=== PATIENT | female | born 1990 | race Asian ===

== ENCOUNTER 2017-06-18 10:24 | Emergency (ER) | payer OTHER ==
[~2017-06-18] VITALS: Ht 170.2 cm; Wt 59.6 kg
[2017-06-18 10:27] VITALS: TEMP 36.6
--- NOTE | 2017-06-18 10:43 | EMERGENCY ROOM VISIT NOTE ---
History Report prepared by Russell: Kristal Thurman Under the Supervision of: Dr. Richard Orantes M.D. First contact with patient: 10:32 Chief Complaint: ED VAG BLEEDING Stated Complaint: 4 WEEKS, BLEEDING AND PAIN History of Present Illness The patient is a 26 year old female who presents to the Emergency Room with complaints of persistent vaginal bleeding that began last evening. She currently rates her discomfort as a 6/10 in severity. Per the patient's , the patient is currently somewhere around 4-5 weeks , noting that her last menstrual period was May 21. He states that the patient tested positive for . The patient's states that this is the patient' s second and denies any previous miscarriage. He states that last evening the patient developed some slight vaginal bleeding and states that this morning she began bleeding more. The patient's states that the patient complains of abdominal pain today as well. Source of History: patient, spouse/significant other () Onset: last evening Position: other (vaginal) Quality: other (bleeding) Timing: other (persistent) Associated Symptoms: + abdominal pain Review of Systems See HPI for pertinent positives & negatives. A total of 10 systems reviewed and were otherwise negative. Past Medical & Surgical Medical Problems: (1) Family History No pertinent family history stated. Social History Smoking Status: Never Smoker Marital Status: Housing Status: lives with family Occupation Status: [employer] student Current/Historical Medications No Active Prescriptions or Reported Meds Allergies Coded Allergies: No Known Allergies (Unverified , 06/18/17) Physical Exam Vital Signs Date Time Temp Pulse Resp B/P (MAP) Pulse Ox O2 Delivery O2 Flow Rate FiO2 06/18/17 12:08 69 20 126/75 100 06/18/17 10:27 36.6 73 16 116/77 97 Room Air Physical Exam GENERAL: Patient is a healthy-appearing well-nourished female HEAD: Normocephalic atraumatic EYES: Ocular movements intact pupils equal and react to light OROPHARYNX mucous membranes are moist no exudates present no erythema or edema present NECK: Supple no nuchal rigidity CHEST: Good equal expansion LUNGS: Clear and equal to auscultation CARDIAC: Normal S1 and S2 ABDOMEN: Soft nontender no guarding BACK: No CVA tenderness EXTREMITIES: No pain upon palpation normal muscle strength in all groups no clubbing cyanosis or edema NEURO: Patient is following commands and answering questions appropriately. Alert and oriented x3 Cranial Nerves 2-12 grossly intact Medical Decision & Procedures ER Provider Diagnostic Interpretation: US results as stated below per my review and radiologist interpretation: PELVIC ULTRASOUND CLINICAL HISTORY: 4 weeks . Vaginal pain and bleeding. COMPARISON STUDY: None. TECHNIQUE: Transabdominal and transvaginal sonography of the pelvis was performed. FINDINGS: The uterus measures 7.9 x 4.2 x 4.5 cm. No intrauterine gestational sac is identified. The endometrium measures 9 mm in thickness. There is a small amount of fluid/debris within the endometrial canal. The ovaries are normal. The right ovary measures 3.6 x 1.5 x 2.4 cm and the left measures 3.3 x 1.6 x 1.6 cm. Color flow is identified within each ovary. A small amount of fluid was noted within the pelvis. IMPRESSION: 1. No intrauterine gestational sac identified. If positive test, differential considerations include a normal early intrauterine gestation, missed spontaneous and sonographically occult ectopic . Close clinical follow-up, including serial beta hCG levels is recommended. 2. Small amount of fluid/debris within the endometrial canal which could reflect blood products. 3. Small amount fluid within the pelvis. Electronically signed by: Aden Zabala M.D. 06/18/2017 12:21 PM Dictated Date/Time: 06/18/2017 12:17 PM Laboratory Results 06/18/17 10:48 Red Blood Count 4.32, Mean Corpuscular Volume 89.4, Mean Corpuscular Hemoglobin 30.8, Mean Corpuscular Hemoglobin Concent 34.5, Mean Platelet Volume 9.7, Neutrophils (%) (Auto) 59.7, Lymphocytes (%) (Auto) 32.1, Monocytes (%) (Auto) 5.2, Eosinophils (%) (Auto) 2.6, Basophils (%) (Auto) 0.2, Neutrophils # (Auto) 3.69, Lymphocytes # (Auto) 1.98, Monocytes # (Auto) 0.32, Eosinophils # (Auto) 0.16, Basophils # (Auto) 0.01 06/18/17 10:48 Test 06/18/17 10:48 06/18/17 10:50 06/18/17 11:05 White Blood Count 6.17 K/uL (4.8-10.8) Red Blood Count 4.32 M/uL (4.2-5.4) Hemoglobin 13.3 g/dL (12.0-16.0) Hematocrit 38.6 % (37-47) Mean Corpuscular Volume 89.4 fL (80-100) Mean Corpuscular Hemoglobin 30.8 pg (25-34) Mean Corpuscular Hemoglobin Concent 34.5 g/dl (32-36) Platelet Count 239 K/uL (130-400) Mean Platelet Volume 9.7 fL (7.4-10.4) Neutrophils (%) (Auto) 59.7 % Lymphocytes (%) (Auto) 32.1 % Monocytes (%) (Auto) 5.2 % Eosinophils (%) (Auto) 2.6 % Basophils (%) (Auto) 0.2 % Neutrophils # (Auto) 3.69 K/uL (1.4-6.5) Lymphocytes # (Auto) 1.98 K/uL (1.2-3.4) Monocytes # (Auto) 0.32 K/uL (0.11-0.59) Eosinophils # (Auto) 0.16 K/uL (0-0.5) Basophils # (Auto) 0.01 K/uL (0-0.2) RDW Standard Deviation 38.9 fL (36.4-46.3) RDW Coefficient of Variation 11.9 % (11.5-14.5) Immature Granulocyte % (Auto) 0.2 % Immature Granulocyte # (Auto) 0.01 K/uL (0.00-0.02) Prothrombin Time 10.7 SECONDS (9.0-12.0) Prothromb Time International Ratio 1.0 (0.9-1.1) Activated Partial Thromboplast Time 31.9 SECONDS (21.0-31.0) Partial Thromboplastin Ratio 1.2 Anion Gap 6.0 mmol/L (3-11) Est Creatinine Clear Calc Drug Dose 147.2 ml/min Estimated GFR () 149.9 Estimated GFR (Non- 129.3 BUN/Creatinine Ratio 13.0 (10-20) Calcium Level 8.5 mg/dl (8.5-10.1) Total Bilirubin 0.5 mg/dl (0.2-1) Aspartate Amino Transf (AST/SGOT) 12 U/L (15-37) Alanine Aminotransferase (ALT/SGPT) 19 U/L (12-78) Alkaline Phosphatase 61 U/L (45-117) Total Protein 6.9 gm/dl (6.4-8.2) Albumin 3.8 gm/dl (3.4-5.0) Globulin 3.1 gm/dl (2.5-4.0) Albumin/Globulin Ratio 1.2 (0.9-2) Human Chorionic Gonadotropin, Quant < 1 mIU/mL Urine Color YELLOW Urine Appearance CLEAR (CLEAR) Urine pH 5.5 (4.5-7.5) Urine Specific [place] 1.015 (1.000-1.030) Urine Protein NEG (NEG) Urine Glucose (UA) NEG (NEG) Urine Ketones NEG (NEG) Urine Occult Blood 3+ (NEG) Urine Nitrite NEG (NEG) Urine Bilirubin NEG (NEG) Urine Urobilinogen NEG (NEG) Urine Leukocyte Esterase TRACE (NEG) Urine WBC (Auto) 1-5 /hpf (0-5) Urine RBC (Auto) >30 /hpf (0-4) Urine Hyaline Casts (Auto) 1-5 /lpf (0-5) Urine Epithelial Cells (Auto) 20-30 /lpf (0-5) Urine Bacteria (Auto) NEG (NEG) Urine Test NEG (NEG) Labs reviewed by ED physician. ED Course 1116: Past medical records reviewed. The patient was evaluated in room C6. A complete history and physical examination was performed. 1228: I reevaluated the patient and she is resting comfortably. I discussed the exam findings with her and I discussed the treatment plan. She verbalized complete understanding and agreement. She is ready to go home. Medical Decision Differential diagnosis: Etiologies such as ectopic , dysfunction uterine bleeding, bleeding dyscrasia, trauma, infection, as well as others were entertained. This is a 26-year-old female who presents emergency department complaining of vaginal bleeding. I will note that I recommended an interpreter deaf for this patient however the patient and refused. The patient believes she is however both her urine as well as her serum beta hCG are negative. Based on this I feel that the patient is having her period. She is complaining of cramping however is not having any pain. Serial abdominal examinations were performed on the patient in the emergency department and at no time did the patient exhibited a surgical abdomen. I do believe that the patient as well as to be discharged home for follow-up with OB. Patient and were in agreement with the treatment plan. Medication Reconcilliation Current Medication List: was personally reviewed by me Blood Pressure Screening Patient's blood pressure: Normal blood pressure Blood pressure disposition: Did not require urgent referral Impression Primary Impression: Vaginal bleeding Scribe Attestation The scribe's documentation has been prepared under my direction and personally reviewed by me in its entirety. I confirm that the note above accurately reflects all work, treatment, procedures, and medical decision making performed by me. Departure Information Dispostion Home / Self-Care Prescriptions No Active Prescriptions or Reported Meds Referrals No Doctor, Assigned (PCP) Canan. Baxter MD Forms HOME CARE DOCUMENTATION FORM, IMPORTANT VISIT INFORMATION, WORK / SCHOOL INSTRUCTIONS Patient Instructions ED Miscarriage Completed, Miscarriage Dc, Miscarriage During, Miscarriage Emotions, Miscarriage Poss Causes, My [facility] Additional Instructions Follow up with DR Valero's office You have been examined and treated today on an emergency basis only. This is not a substitute for, or an effort to provide, complete comprehensive medical care. It is impossible to recognize and treat all injuries or illnesses in a single emergency department visit. It is therefore important that you follow up closely with [facility]. Call as soon as possible for an appointment. Thank you for your time and consideration. I look forward to speaking with you again soon. Please don't hesitate to call us if you have any questions.
[2017-06-18 11:08] LABS: BASO % 0.2 %; BASO ABS # 0.01 K/uL (0-0.2); COMPLETE YES; EOS % 2.6 %; HEMATOCRIT 38.6 % (37-47); IG% 0.2 %; LYMPH % 32.1 %; LYMPH ABS # 1.98 K/uL (1.2-3.4); MEAN CELL VOLUME 89.4 fL (80-100); MEAN CORPUSCULAR HEMOGLOBIN 30.8 pg (25-34); MEAN CORPUSCULAR HGB CONC 34.5 g/dl (32-36); MEAN PLATELET VOLUME 9.7 fL (7.4-10.4); MONO % 5.2 %; NEUT % 59.7 %; PLATELET COUNT 239 K/uL (130-400); RED BLOOD COUNT 4.32 M/uL (4.2-5.4); WHITE BLOOD COUNT 6.17 K/uL (4.8-10.8)
[2017-06-18 11:15] VITALS: Ht 170.2 cm; Wt 59.6 kg
[2017-06-18 11:23] LABS: PARTIAL THROMBOPLASTIN RATIO 1.2; PROTHROMBIN TIME (PATIENT) 10.7 SECONDS (9.0-12.0)
[2017-06-18 11:26] LABS: CALCIUM 8.5 mg/dl (8.5-10.1); CREATININE 0.54 mg/dl (0.60-1.20); POTASSIUM 3.9 mmol/L (3.5-5.1)
[2017-06-18 11:29] LABS: ALB/GLOB RATIO 1.2 (0.9-2)
[2017-06-18 11:38] LABS: URINE APPEARANCE CLEAR (CLEAR); URINE BILIRUBIN NEG (NEG); URINE COLOR YELLOW; URINE EPITHELIAL CELL AUTO 20-30 /lpf (0-5); URINE NITRITE NEG (NEG); URINE PH 5.5 (4.5-7.5); URINE SPECIFIC GRAVITY 1.015 (1.000-1.030); UROBILINOGEN NEG (NEG)
[2017-06-18 11:41] LABS: MANUAL MICROSCOPIC REQUIRED? NO; REVIEW REQ? NO
[2017-06-18 12:08] VITALS: BP 126/75; PULSE 69; O2SAT 100
--- NOTE | 2017-06-18 12:22 | DIAGNOSTIC IMAGING REPORT ---
PELVIC ULTRASOUND CLINICAL HISTORY: 4 weeks . Vaginal pain and bleeding. COMPARISON STUDY: None. TECHNIQUE: Transabdominal and transvaginal sonography of the pelvis was performed. FINDINGS: The uterus measures 7.9 x 4.2 x 4.5 cm. No intrauterine gestational sac is identified. The endometrium measures 9 mm in thickness. There is a small amount of fluid/debris within the endometrial canal. The ovaries are normal. The right ovary measures 3.6 x 1.5 x 2.4 cm and the left measures 3.3 x 1.6 x 1.6 cm. Color flow is identified within each ovary. A small amount of fluid was noted within the pelvis. IMPRESSION: 1. No intrauterine gestational sac identified. If positive test, differential considerations include a normal early intrauterine gestation, missed spontaneous and sonographically occult ectopic . Close clinical follow-up, including serial beta hCG levels is recommended. 2. Small amount of fluid/debris within the endometrial canal which could reflect blood products. 3. Small amount fluid within the pelvis. Electronically signed by: Aden Zabala M.D. 06/18/2017 12:21 PM Dictated Date/Time: 06/18/2017 12:17 PM
== END 2017-06-18 12:42 | disposition home or self-care (01) ==
LOC: C.EDB 10:26 → C.EDC 12:42
DX: N93.9 Abnormal uterine and vaginal bleeding, unspecified (principal)

== ENCOUNTER → 2017-10-12 | Outpatient (CLI) | payer OTHER ==
--- NOTE | 2017-10-12 15:28 | DIAGNOSTIC IMAGING REPORT ---
CHEST 2 VIEWS ROUTINE CLINICAL HISTORY: R50.9 [id number] cough COMPARISON STUDY: No previous studies for comparison. FINDINGS: The bones soft tissues and hemidiaphragms are normal. The cardiomediastinal silhouette is normal. The lungs are clear. The pulmonary vasculature is normal. IMPRESSION: Negative chest. The above report was generated using voice recognition software. It may contain grammatical, syntax or spelling errors. Electronically signed by: Jamie Quinn M.D. 10/12/2017 3:27 PM Dictated Date/Time: 10/12/2017 3:27 PM
[2017-10-12 16:43] LABS: BASO % 0.1 %; BASO ABS # 0.01 K/uL (0-0.2); EOS % 1.3 %; EOS ABS # 0.11 K/uL (0-0.5); HEMATOCRIT 35.2 % (37-47); IG# 0.02 K/uL (0.00-0.02); LYMPH % 22.5 %; LYMPH ABS # 1.92 K/uL (1.2-3.4); MEAN CELL VOLUME 88.9 fL (80-100); MEAN CORPUSCULAR HEMOGLOBIN 30.3 pg (25-34); MEAN CORPUSCULAR HGB CONC 34.1 g/dl (32-36); MEAN PLATELET VOLUME 9.6 fL (7.4-10.4); MONO % 7.9 %; MONO ABS # 0.67 K/uL (0.11-0.59); PLATELET COUNT 357 K/uL (130-400); RED CELL DISTRIBUTION WIDTH CV 11.5 % (11.5-14.5); RED CELL DISTRIBUTION WIDTH SD 37.3 fL (36.4-46.3); WHITE BLOOD COUNT 8.53 K/uL (4.8-10.8)
[2017-10-12 16:55] LABS: ALBUMIN 3.3 gm/dl (3.4-5.0); ALT/SGPT 79 U/L (12-78); AST/SGOT 46 U/L (15-37); BLOOD UREA NITROGEN 7 mg/dl (7-18); CALCIUM 8.9 mg/dl (8.5-10.1); CARBON DIOXIDE 29 mmol/L (21-32); CREATININE 0.49 mg/dl (0.60-1.20); GLUCOSE 99 mg/dl (70-99); SODIUM 135 mmol/L (136-145)
[2017-10-12 17:05] LABS: ALKALINE PHOSPHATASE 140 U/L (45-117); TOTAL PROTEIN 7.7 gm/dl (6.4-8.2)
== END | disposition home or self-care (01) ==
LOC: C.RADBC 14:36
PROVIDERS: ATTEND Physician Assistant
DX: R50.9 Fever, unspecified (principal); E04.9 Nontoxic goiter, unspecified

== ENCOUNTER → 2017-10-14 | Outpatient (CLI) | payer OTHER | END | disposition home or self-care (01) | LOC: C.LABBC 10:10 | PROVIDERS: ATTEND Physician Assistant | DX: E04.9 Nontoxic goiter, unspecified (principal) ==

== ENCOUNTER → 2017-10-14 | Outpatient (CLI) | payer OTHER ==
--- NOTE | 2017-10-14 11:43 | DIAGNOSTIC IMAGING REPORT ---
THYROID ULTRASOUND HISTORY: E04.9 Enlarged [id number] COMPARISON: None. FINDINGS: Right lobe: 4.0 x 2.2 x 2.0 cm. The gland is slightly heterogeneous. No definite nodules. Left lobe: 3.9 x 1.5 x 1.7 cm. The gland is slightly heterogeneous. No definite nodules. Isthmus: 4 mm in thickness. No nodules. IMPRESSION: Slightly enlarged and heterogeneous thyroid gland. No definite nodules. Electronically signed by: Riley Gross M.D. 10/14/2017 11:41 AM Dictated Date/Time: 10/14/2017 11:40 AM
== END | disposition home or self-care (01) ==
LOC: C.ULTR 10:47
PROVIDERS: ATTEND Physician Assistant
DX: E04.9 Nontoxic goiter, unspecified (principal)

== ENCOUNTER → 2018-05-17 | Outpatient (CLI) | payer OTHER | END | disposition home or self-care (01) | LOC: C.LABSPEC 15:49 | PROVIDERS: ATTEND Obstetrics & Gynecology | DX: Z34.81 Encounter for supervision of other normal pregnancy, first trimester (principal) ==

== ENCOUNTER → 2018-05-19 | Outpatient (CLI) | payer OTHER | END | disposition home or self-care (01) | LOC: C.PAPS 15:52 | PROVIDERS: ATTEND Obstetrics & Gynecology | DX: Z12.4 Encounter for screening for malignant neoplasm of cervix (principal) ==

== ENCOUNTER → 2018-05-19 | Outpatient (CLI) | payer OTHER ==
[2018-05-19 13:18] LABS: BASO % 0.1 %; BASO ABS # 0.01 K/uL (0-0.2); EOS % 0.9 %; EOS ABS # 0.06 K/uL (0-0.5); HEMATOCRIT 38.7 % (37-47); HEMOGLOBIN 13.6 g/dL (12.0-16.0); IG# 0.01 K/uL (0.00-0.02); LYMPH % 30.9 %; LYMPH ABS # 2.11 K/uL (1.2-3.4); MEAN CORPUSCULAR HEMOGLOBIN 30.6 pg (25-34); MEAN CORPUSCULAR HGB CONC 35.1 g/dl (32-36); MEAN PLATELET VOLUME 9.8 fL (7.4-10.4); MONO % 4.2 %; MONO ABS # 0.29 K/uL (0.11-0.59); NEUT % 63.8 %; NEUT ABS # 4.35 K/uL (1.4-6.5); PLATELET COUNT 212 K/uL (130-400); RED CELL DISTRIBUTION WIDTH SD 38.2 fL (36.4-46.3); WHITE BLOOD COUNT 6.83 K/uL (4.8-10.8)
== END | disposition home or self-care (01) ==
LOC: C.LAB1850 12:33
PROVIDERS: ATTEND Obstetrics & Gynecology
DX: Z34.81 Encounter for supervision of other normal pregnancy, first trimester (principal); E06.0 Acute thyroiditis

== ENCOUNTER 2019-01-04 10:20 | Inpatient (IN) ==
[2019-01-04] MEDS ORDERED: LACTATED RINGER'S 1,000 ML IV PRN ×3 (10:33→12:11)
[2019-01-04] MEDS ORDERED: OXYTOCIN 30 UNITS/500 ML BAG IV PRN ×3 (10:33→13:19)
[2019-01-04] MEDS ORDERED: BUPIVACAINE 0.25% 30 ML VIAL ONE (10:39)
[2019-01-04] MEDS ORDERED: ePHEDrine sulfate 50 MG/ML AMP ONE (10:39)
[2019-01-04] MEDS ORDERED: fentaNYL citrate 100 MCG/2 ML VIAL ONE (10:40)
[2019-01-04] MEDS ORDERED: fentaNYL 2MCG/ML ROPIV 1.25MG/ML 100 ML BAG EPI ONE (10:41)
[2019-01-04] MEDS ORDERED: LACTATED RINGER'S 1,000 ML IV SCH (10:45)
[2019-01-04 10:52] LABS: Hematocrit (blood only) 36.6 % (37-47); Hemoglobin 12.6 g/dL (12.0-16.0); Mean Corpuscular Volume 89.5 fL (80-100); Mean Platelet Volume 9.3 fL (7.4-10.4); Platelet Count 158 K/uL (130-400); RDW Coefficient of Variation 13.7 % (11.5-14.5); RDW Standard Deviation 44.8 fL (36.4-46.3); Red Blood Count 4.09 M/uL (4.2-5.4); White Blood Count 11.22 K/uL (4.8-10.8)
[2019-01-04 11:35] LABS: Mean Corpuscular Hgb Conc 34.4 g/dL (32-36)
--- NOTE | 2019-01-04 11:37 | Anesthesiology Consultation ---
Date of Service January 04, 2019 Assessment & Plan Chart Review Chart Review: Acceptable Risk for Labor Epidural Consults Requested none ASA ASA2E History Height/Weight Height: 5 ft 8 in Weight: 73.936 kg Allergies Allergy/AdvReac Type Severity Reaction Status Date / Time No Known Allergies Allergy Verified 01/04/19 10:42 Medications Home Medications Medication Instructions Recorded Confirmed Last Taken ferrous sulfate [iron] 325 mg PO TID 12/31/18 01/04/19 01/03/19 16:00 omega 2-iqa-wem-fish oil [Sandgap-3] 1 cap PO DAILY 12/31/18 01/04/19 01/03/19 16:00 Active Medications Generic Name Dose Route Start Last Admin Trade Name Freq PRN Reason Stop Dose Admin Lactated Ringer's 1,000 mls @ 125 mls/hr 01/04/19 10:45 01/04/19 10:38 Lr IV 01/06/19 10:44 999 mls/hr .Q8H ZELALEM Administration Past Medical History Medical History Thyroiditis Acute in 2017 [place] teeth extracted 2010 Social History Smoking Status: Never smoker Hx Alcohol Use: No Hx Substance Use: No substance use type: does not use Physical Exam Vital Signs Last Vital Signs Temp 36.5 C 01/04/19 10:26 Pulse 77 01/04/19 11:35 Resp 20 01/04/19 10:26 BP 112/59 L 01/04/19 11:35 Pulse Ox 100 01/04/19 11:31 Testing Laboratory Results 01/04/19 10:37
[2019-01-04] MEDS ORDERED: ePHEDrine sulfate 50 MG/ML AMP IV PRN (11:39)
[2019-01-04] MEDS ORDERED: DiphenhydrAMINE HCL 50 MG/ML VIAL IV PRN (11:39)
[2019-01-04] MEDS ORDERED: NALOXONE HCL 1 MG in SODIUM CHLORIDE 0.9% 1000ML 1,000 ML IV PRN (11:39)
[2019-01-04] MEDS ORDERED: NALOXONE HCL 0.4 MG/1 ML VIAL/CARP IV PRN (11:39)
[2019-01-04] MEDS ORDERED: fentaNYL 2MCG/ML ROPIV 1.25MG/ML 100 ML BAG EPI PRN (11:39)
[2019-01-04] MEDS ORDERED: NALBUPHINE HCL INJ 10 MG/ML AMP IV PRN (11:39)
[2019-01-04] MEDS ORDERED: ONDANSETRON INJ 2 MG/ML 2 ML VIAL IV PRN (11:39)
--- NOTE | 2019-01-04 11:50 | History & Physical Report ---
Date of Service January 04, 2019 Assessment & Plan (1) Supervision of normal intrauterine in multigravida in third t rimester: -Fetus currently category 1 tracing. We will continue to monitor. -Labor, currently 8 cm dilated. Membrane ruptured by Dr. Ribeiro. We will start oxytocin per regular protocol. expected. -Vitals currently within normal limits. We will continue to monitor. - hemorrhage risk considered at low risk. We will collect a CBC, type and screen and will continue to monitor. - O+, GBS-, Rubella Immune. History of Present Illness Primary Care Provider: JANNY Hammonds DATE OF ADMISSION: 01/04/2018 REASON FOR ADMISSION: Induction of labor secondary to postdates. BRIEF HISTORY: 28 y/o , currently at 40 weeks 5 days gestational age with MARY ELLEN of 12/30/2018 by LMP. Pt had first trimester U/S in [place], records were reviewed and showed normal anatomy. The patient presented to labor and delivery from outpt clinic where she presented with contractions and found to have reactive NST. At time of admission, the patient admitted to having contractions, but no vaginal bleeding or leakage of fluid, and reported normal movement. Of note, pt was in [place] from [place] 7 weeks to 24 weeks. COURSE: The patient presented for care at approximately 7 weeks' gestational age. As noted above, pt was in [place] from GA 7 to 24 weeks. Records here show that she has been normotensive throughout. She has had no proteinuria, glucola testing at 28 weeks showed 106 mg/dl (pt states 16 wk glucola was 105 in [place], but have no record), total weight gain for the is approximately 35 pounds. AGA on U/S at 31 weeks. COMPLICATIONS: None. LABS: Blood type O positive, antibody screen negative, RPR nonreactive , rubella immune, hep B surface antigen negative, HIV negative, chlamydia negative, gonorrhea negative. Anatomy scan normal and complete. Hep group B strep negative. GYNECOLOGIC HISTORY: LMP 03/25/2018, age of menarche 11. The patient reports regular 28 day cycles with normal duration and quantity of menses. Denies any history of sexually transmitted infections or abnormal Paps. PAST MEDICAL HISTORY: Unremarkable. PAST SURGICAL HISTORY: [place] Teeth. MEDICATIONS: 1. Folic Acid Tabs 2. Iron Tabs 3. [place] 3 ALLERGIES: NKDA SOCIAL HISTORY: The patient denies tobacco, alcohol or illicit drug use. FAMILY HISTORY: Mother- Breast Ca. Otherwise noncontributory. Allergies Allergy/AdvReac Type Severity Reaction Status Date / Time No Known Allergies Allergy Verified 01/04/19 10:42 Home Medications Home Medications Medication Instructions Recorded Confirmed Type ferrous sulfate [iron] 325 mg PO TID 12/31/18 01/04/19 History omega 7-fcf-bfv-fish oil [[place]-3] 1 cap PO DAILY 12/31/18 01/04/19 History Patient History Medical History Thyroiditis Acute in 2017 [place] teeth extracted 2010 Social History Preferred Language: Belarusian Communication Ability: Effective Beliefs That Will Affect Care: None marital status: Current Living Situation: Spouse and Family Current Living Situation Comment: lives with spouse and daughter Other Information That Helps Us Care for You: No Feels Safe at Home: Yes Safety Concerns: Feels Safe At This Time Smoking Status: Never smoker Hx Alcohol Use: No Hx Substance Use: No Review of Systems All systems reviewed & are unremarkable except as noted in HPI & below Physical Exam Vital Signs (Past 24 Hours): Last Vital Signs Temp 36.5 C 01/04/19 10:26 Pulse 79 01/04/19 11:41 Resp 20 01/04/19 10:26 BP 106/56 L 01/04/19 11:37 Pulse Ox 99 01/04/19 11:41 Constitutional: WD/WN, vitals as above Eyes: PERRL, conjunctivae normal, anicteric sclerae ENMT: external ear and nose normal, oropharynx normal Respiratory: normal respiratory effort, lungs clear to auscultation Cardiovascular: RRR, no murmur, no edema Gastrointestinal (Abdomen): Soft, nontender, gravid FH- term Vertex Contractions palpated EFW 7 1/2 LBS Skin: no rashes, warm and dry Psychiatric: A+Ox3, euthymic affect Genitourinary: 8 cm dilated, 100% effaced, 0 station (per Dr. Ribeiro) Results & Data Laboratory Results Laboratory Results - last 24 hr 01/04/19 10:37 WBC 11.22 H RBC 4.09 L Hgb 12.6 Hct 36.6 L MCV 89.5 MCH 30.8 MCHC 34.4 RDW Std Deviation 44.8 RDW Coeff of Tony 13.7 Plt Count 158 MPV 9.3 Medications Administered Current Inpatient Medications Diphenhydramine HCl (Benadryl) 25 mg IV Q6H PRN PRN Reason: Itching Stop: 01/05/19 11:38 Ephedrine Sulfate (Ephedrine Sulfate) 10 mg IV Q5M PRN PRN Reason: Hypotension Stop: 01/05/19 11:38 Lactated Ringer's (Lr) 1,000 mls @ 999 mls/hr IV .Q1H1M PRN PRN Reason: (Pre-Anesthesia) Stop: 02/03/19 10:32 Lactated Ringer's (Lr) 1,000 mls @ 125 mls/hr IV .Q8H ZELALEM Stop: 01/06/19 10:44 Last Admin: 01/04/19 10:38 Dose: 999 mls/hr Documented by: Oxytocin (Pitocin) 30 units in 500 mls @ 333.333 mls/hr IV .Q1H30M PRN; Protocol PRN Reason: Bleeding Control Stop: 02/03/19 10:32 Naloxone HCl 1 mg/ Sodium (Chloride) 1,002.5 mls @ 50 mls/hr IV .Q20H3M PRN PRN Reason: itching or nausea Stop: 01/05/19 11:38 Lactated Ringer's (Lr) 1,000 mls @ 999 mls/hr IV .Q1H1M PRN PRN Reason: Hypotension Stop: 01/05/19 11:38 Nalbuphine HCl (Nubain) 5 mg IV Q10M PRN PRN Reason: itching or nausea Stop: 01/05/19 11:38 Naloxone HCl (Narcan) 0.1 mg IV UD PRN PRN Reason: respiratory depression Stop: 01/05/19 11:38 Ondansetron HCl (Zofran) 4 mg IV Q6H PRN PRN Reason: Nausea And Vomiting Stop: 01/05/19 11:38 Ropivacaine (Epidural (L&D)) 100 ml EPI PRN PRN; Protocol PRN Reason: Pain R/T Labor Stop: 01/05/19 11:38 Code Status & VTE Plan Code Status FULL Supervising Physician Co-Signing Physician Notes Resident Physician Supervision Note: I was present with Dr. Styles during the history and exam. I discussed the case with the resident and agree with the findings and plan as documented in the note. Any exceptions or clarifications are listed here: 40 (+) wks GA active labor, epidural placed, anticipate Documented By: Parish Ribeiro Jr, MD, FACOG Resident Activity Tracking Resident Involvement: Resident Care Provided Care Provided: OB Delivery
[2019-01-04 13:10] LABS: Base Excess Cord Arterial Bld -2.7 mEq/L (-9-1.8); CO2 Cord Arterial Blood 58 mmHg (39.1-73.5); HCO3 Cord Arterial Blood 26 mmol/L (19.7-28.5); pH Cord Arterial Blood 7.26 (7.1-7.38)
[2019-01-04 13:17] LABS: Base Excess Cord Venous Blood -1.3 mEq/L (-7.7-1.9); Cord Venous Blood HCO3 25 mmol/L (18.4-26.8); Cord Venous Blood PCO2 45 mmHg (30.4-57.2); Cord Venous Blood PO2 30 mmHg (14.1-43.3); Cord Venous Blood pH 7.35 (7.20-7.44)
[2019-01-04] MEDS ORDERED: ACETAMINOPHEN 325 MG TAB PO PRN (13:19)
[2019-01-04] MEDS ORDERED: SUPERCREAM 0.870% 15 GM JAR EXT PRN (13:19)
[2019-01-04] MEDS ORDERED: BENZOCAINE 20% AER SPR 82.5 GM CAN EXT PRN (13:19)
[2019-01-04] MEDS ORDERED: ACETAMINOPHEN W/CODEINE #3 1 TAB PO PRN (13:19)
[2019-01-04] MEDS ORDERED: DIPHTHERIA/TETANUS/PERTUSSIS 0.5 ML SYR/VIAL IM ONE (13:19)
[2019-01-04] MEDS ORDERED: HYDROCORTISONE ACETATE 25 MG SUPP PR PRN (13:19)
--- NOTE | 2019-01-04 13:47 | Delivery Summary ---
DATE OF OPERATION: 01/04/2019 DELIVERY NOTE FINDINGS: Viable male with Apgars of 8 and 9. Baby delivered over a second-degree midline laceration by vacuum extraction for nonreassuring heart rate tracing, possible placental abruption. Cord gases, cord blood samples obtained. Placenta delivered spontaneously. Midline laceration repaired with 4-0 Vicryl in routine fashion. Estimated blood loss 300 mL. LABOR NOTE: The patient is a 28-year-old 2, para 1 with an EDC of 30 December at 40+ weeks gestational age who presented from the office in active labor. The patient states her contractions began at 0400 hours and increased in intensity. The patient was seen in the office today for routine OB check, was noted to be 6 cm and was sent to labor and delivery for evaluation. The patient has had a benign course. Some of her [facility] in [facility] as well as [facility]. Blood type O positive, antibody negative, rubella immune, hepatitis B negative. She had normal 1-hour Glucola x2 and a negative third trimester beta strep culture. Upon admission, the patient was 6-7 cm dilated, 100% effaced, 0 station in active labor. Membranes were intact. The patient was very uncomfortable. Anesthesia was consulted and an epidural was placed. Following placement of the epidural, the patient had artificial rupture of membranes for clear fluid. Tracing again was category 2 and reassuring. The patient progressed to full dilatation, but the amniotic fluid became bloody in nature. She began her second stage and was pushing somewhat effectively, there began to be decelerations with the contractions with slow return to baseline. Fluid remained bloody consistent with placental abruption and a decision was made to proceed with an operative vaginal delivery using the vacuum. After obtaining verbal consent from the patient, the bladder was drained of any residual urine. The Mityvac vacuum was applied and over 2 contractions with 1 pop-off, the baby was delivered over midline second-degree laceration. Blood clots after delivery of the infant, cord was clamped and cut. Cord gases, cord blood samples obtained. Placenta was delivered spontaneously. There were blood clots along the membrane junction with the placenta consistent with an abruption. Placenta was sent for pathological evaluation. Midline laceration was repaired with 4-0 Vicryl in routine fashion. Estimated blood loss 300 mL. Sponge and needle count was correct. I attest to the content of the Intraoperative Record and any orders documented therein. Any exception s are noted below.
[2019-01-04] MEDS: IBUPROFEN 600 MG TAB PO PRN ×2 (14:51→20:26)
--- NOTE | 2019-01-04 14:55 | Anesthesia Procedure Note ---
Date of Service January 04, 2019 Anesthesia Post Epidural Note Vital Signs Vital Signs: Temp Pulse Resp BP Pulse Ox 36.5 C 75 20 113/67 99 01/04/19 12:05 01/04/19 14:53 01/04/19 14:23 01/04/19 14:53 01/04/19 12:41 Notes Mental Status: alert / awake / arousable and participated in evaluation Nausea / Vomiting: adequately controlled Pain: adequately controlled Airway Patency, RR, SpO2: stable & adequate BP & HR: stable & adequate Hydration State: stable & adequate Neuraxial Anesthesia: was administered and sensory block is resolving Anesthetic Complications: no major complications apparent and Pt Satisfied with anesthetic care Epidural: Removed without complications and With tip intact
[2019-01-04] MEDS: DOCUSATE SODIUM 100 MG CAP PO SCH (20:28)
[2019-01-05] MEDS: IBUPROFEN 600 MG TAB PO PRN ×3 (00:28→22:03)
--- NOTE | 2019-01-05 06:45 | Obstetrical Progress Note ---
Date of Service <Harris Styles - Last Filed: 01/05/19 06:45> January 05, 2019 Assessment & Plan <Harris Styles DO - Last Filed: 01/05/19 06:45> (1) (spontaneous vaginal delivery): -vital signs reviewed and WNL -last Hgb 12.6 -Blood type: O+, GBS-, Rubella Immune -pt doing well clinically -encourage ambulation, monitor and control pain with motrin tylenol, cont regular diet, monitor lochia -cont encourage breast feeding Subjective <Harris Styles - Last Filed: 01/05/19 06:45> 28 y/o PPD1 found in bed this morning in NAD. Reports no acute overnight events. Pt states that she has no pain other than appropriate soreness. Tolerating PO intake without N/V. Able to ambulate without issue. She is both bottle and breast feeding without issue. No issues with voiding, no BM yet. No other acute concerns or complaints. Review of Systems All systems reviewed & are unremarkable except as noted in HPI & below Physical Exam <Harris Styles - Last Filed: 01/05/19 06:45> Vital Signs (Past 24 Hours) Last Vital Signs Temp 36.7 C 01/05/19 04:00 Pulse 78 01/05/19 04:00 Resp 16 01/05/19 04:00 BP 105/63 01/05/19 04:00 Pulse Ox 98 01/04/19 19:30 Constitutional WD/WN, vitals as above Eyes PERRL, conjunctivae normal, anicteric sclerae ENMT external ear and nose normal, oropharynx normal Respiratory normal respiratory effort, lungs clear to auscultation Cardiovascular RRR, no murmur, no edema Gastrointestinal (Abdomen) mild abd tenderness Skin no rashes, warm and dry Psychiatric A+Ox3, euthymic affect Lymphatic no LE swelling, no calf tenderness Results & Data <Harris Styles - Last Filed: 01/05/19 06:45> Laboratory Results Laboratory Results - last 24 hr 01/04/19 01/04/19 01/04/19 10:37 12:39 12:39 WBC 11.22 H RBC 4.09 L Hgb 12.6 Hct 36.6 L MCV 89.5 MCH 30.8 MCHC 34.4 RDW Std Deviation 44.8 RDW Coeff of Tony 13.7 Plt Count 158 MPV 9.3 Cord ABG pH 7.26 Cord ABG pCO2 58 Cord ABG pO2 34.0 H Cord ABG HCO3 26 Cord ABG Base Excess -2.7 Cord ABG O2 Sat 68.0 H Cord VBG pH 7.35 Cord VBG pCO2 45 Cord VBG pO2 30 Cord VBG HCO3 25 Cord VBG Base Excess -1.3 Cord VBG O2 Sat 66.0 Barometric Pressure 737.6 737.6 Blood Gas Comments CASTRO CASTRO Medications Administered Current Inpatient Medications Acetaminophen (Tylenol) 650 mg PO Q6H PRN PRN Reason: Pain/FLANNERY/Fever Stop: 02/03/19 13:18 Acetaminophen/Codeine Phosphate (Tylenol W/Codeine #3) 1 - 2 tab PO Q4H PRN PRN Reason: Pain not controlled with... Stop: 02/03/19 13:18 Last Admin: 01/04/19 21:55 Dose: 2 tab Documented by: Benzocaine (Dermoplast Pain Relieving [place]) 1 appln EXT PRN PRN PRN Reason: Perineal Discomfort Stop: 02/03/19 13:18 Last Admin: 01/04/19 18:37 Dose: 82.5 appln Documented by: Bisacodyl (Dulcolax) 5 mg PO 1999 [facility] Stop: 01/05/19 20:01 Cocaine HCl (Supercream 0.870%) 1 gm EXT BID PRN PRN Reason: Hemorrhoidal Inflammation Stop: 01/18/19 13:18 Diphenhydramine HCl (Benadryl) 25 mg IV Q6H PRN PRN Reason: Itching Stop: 01/05/19 11:38 Docusate Sodium (Colace) 100 mg PO BID [facility] Stop: 02/03/19 20:59 Last Admin: 01/04/19 20:28 Dose: 100 mg Documented by: Ephedrine Sulfate (Ephedrine Sulfate) 10 mg IV Q5M PRN PRN Reason: Hypotension Stop: 01/05/19 11:38 Hydrocortisone (Anusol Hc) 25 mg IN BID PRN PRN Reason: Hemorrhoidal Inflammation Stop: 02/03/19 13:18 Naloxone HCl 1 mg/ Sodium (Chloride) 1,002.5 mls @ 50 mls/hr IV .Q20H3M PRN PRN Reason: itching or nausea Stop: 01/05/19 11:38 Lactated Ringer's (Lr) 1,000 mls @ 999 mls/hr IV .Q1H1M PRN PRN Reason: Hypotension Stop: 01/05/19 11:38 Oxytocin (Pitocin) 30 units in 500 mls @ 333.333 mls/hr IV .Q1H30M PRN; Protocol PRN Reason: BLEEDING CONTROL Stop: 02/03/19 13:18 Last Admin: 01/04/19 12:40 Dose: 20 units/hr, 333.3 mls/hr Documented by: Ibuprofen (Motrin) 600 mg PO Q4H PRN PRN Reason: Pain/FLANNERY/Cramping/Fever Stop: 02/03/19 13:18 Last Admin: 01/05/19 05:46 Dose: 600 mg Documented by: Nalbuphine HCl (Nubain) 5 mg IV Q10M PRN PRN Reason: itching or nausea Stop: 01/05/19 11:38 Naloxone HCl (Narcan) 0.1 mg IV UD PRN PRN Reason: respiratory depression Stop: 01/05/19 11:38 Ondansetron HCl (Zofran) 4 mg IV Q6H PRN PRN Reason: Nausea And Vomiting Stop: 01/05/19 11:38 Prenat Multivit/[place]/Iron/Folic Ac ( Vitamin) 1 tab PO QAM [place] Stop: 02/04/19 08:59 Ropivacaine (Epidural (L&D)) 100 ml EPI PRN PRN; Protocol PRN Reason: Pain R/T Labor Stop: 01/05/19 11:38 <Parish Ribeiro Jr, MD, FACOG - Last Filed: 01/05/19 07:14> Co-Signing Physician Notes Resident Physician Supervision Note: I was present with Dr. Styles during the history and exam. I discussed the case with the resident and agree with the findings and plan as documented in the note. Any exceptions or clarifications are listed here: Routine care, doing well. Documented By: Parish Ribeiro Jr, MD, FACOG Resident Activity Tracking <Harris Styles, DO - Last Filed: 01/05/19 06:45> Resident Involvement: Resident Care Provided Care Provided: OB Delivery
[2019-01-05] MEDS: PRENATAL VITAMIN 1 TAB PO SCH (08:22)
[2019-01-05] MEDS: DOCUSATE SODIUM 100 MG CAP PO SCH ×2 (08:22→20:45)
[2019-01-05] MEDS ORDERED: BISACODYL 5 MG TABEC PO SCH (20:00)
--- NOTE | 2019-01-06 06:51 | Obstetrical Progress Note ---
Date of Service <Harris DarynJosh Styles - Last Filed: 01/06/19 06:51> January 06, 2019 Assessment & Plan <Harris Styles - Last Filed: 01/06/19 06:51> (1) (spontaneous vaginal delivery): -vital signs reviewed and WNL -last Hgb 12.6 -Blood type: O+, GBS-, Rubella Immune -pt doing well clinically -encourage ambulation, monitor and control pain with motrin tylenol, cont regular diet, monitor lochia -cont encourage breast feeding -plan for d/c today Subjective <Harris DarynJosh Styles - Last Filed: 01/06/19 06:51> 28 y/o PPD2 found in bed this morning in NAD. Reports no acute overnight events. Pt states that she has no pain other than appropriate soreness. Tolerating PO intake without N/V. Able to ambulate without issue. She is both bottle and breast feeding without issue. No issues with voiding, no BM yet. No other acute concerns or complaints. Pt ok with plan for d/c today. Review of Systems All systems reviewed & are unremarkable except as noted in HPI & below Physical Exam <Harris CJosh Styles - Last Filed: 01/06/19 06:51> Vital Signs (Past 24 Hours) Last Vital Signs Temp 36.6 C 01/06/19 00:30 Pulse 81 01/06/19 00:30 Resp 18 01/06/19 00:30 BP 93/56 L 01/06/19 00:30 Pulse Ox 96 01/05/19 15:31 Constitutional WD/WN, vitals as above Eyes PERRL, conjunctivae normal, anicteric sclerae ENMT external ear and nose normal, oropharynx normal Respiratory normal respiratory effort, lungs clear to auscultation Cardiovascular RRR, no murmur, no edema Gastrointestinal (Abdomen) mild abd tenderness Skin no rashes, warm and dry Psychiatric A+Ox3, euthymic affect Lymphatic no LE swelling, no calf tenderness Results & Data <Harris Nasir Styles - Last Filed: 01/06/19 06:51> Medications Administered Current Inpatient Medications Acetaminophen (Tylenol) 650 mg PO Q6H PRN PRN Reason: Pain/FLANNERY/Fever Stop: 02/03/19 13:18 Last Admin: 01/05/19 08:27 Dose: 650 mg Documented by: Acetaminophen/Codeine Phosphate (Tylenol W/Codeine #3) 1 - 2 tab PO Q4H PRN PRN Reason: Pain not controlled with... Stop: 02/03/19 13:18 Last Admin: 01/04/19 21:55 Dose: 2 tab Documented by: Benzocaine (Dermoplast Pain Relieving [place]) 1 appln EXT PRN PRN PRN Reason: Perineal Discomfort Stop: 02/03/19 13:18 Last Admin: 01/04/19 18:37 Dose: 82.5 appln Documented by: Cocaine HCl (Supercream 0.870%) 1 gm EXT BID PRN PRN Reason: Hemorrhoidal Inflammation Stop: 01/18/19 13:18 Docusate Sodium (Colace) 100 mg PO BID [facility] Stop: 02/03/19 20:59 Last Admin: 01/05/19 20:45 Dose: 100 mg Documented by: Hydrocortisone (Anusol Hc) 25 mg SD BID PRN PRN Reason: Hemorrhoidal Inflammation Stop: 02/03/19 13:18 Oxytocin (Pitocin) 30 units in 500 mls @ 333.333 mls/hr IV .Q1H30M PRN; Protocol PRN Reason: BLEEDING CONTROL Stop: 02/03/19 13:18 Last Admin: 01/04/19 12:40 Dose: 20 units/hr, 333.3 mls/hr Documented by: Ibuprofen (Motrin) 600 mg PO Q4H PRN PRN Reason: Pain/FLANNERY/Cramping/Fever Stop: 02/03/19 13:18 Last Admin: 01/05/19 22:03 Dose: 600 mg Documented by: Prenat Multivit/[place]/Iron/Folic Ac ( Vitamin) 1 tab PO QAM [facility] Stop: 02/04/19 08:59 Last Admin: 01/05/19 08:22 Dose: 1 tab Documented by: <Georgiana Canas DO - Last Filed: 01/06/19 08:54> Co-Signing Physician Notes I have seen/examined patient. I have read above note performed by resident and I agree with above. Any changes/additions are as follows: PPD#2 physically doing well. She is sobbing when I walk into the room. Animal Nutrition Consultant services offered, when the data entry technician was pulled up on the iPad, patient declined, stating she did not want a male crnp. She would like her to stay and to provide interpretation. She tells me that she is crying because she is so frustrated with the events that unfolded in her labor room during her delivery. She states she was preparing to push and multiple learners walked into the room (she believes they were nursing students), and did not intr oduce themselves, and no one asked her permission if they could watch her delivery. She was very upset that there were male learners in the room observing her without her consent. She felt violated and cannot stop thinking about this part of her delivery. I apologized to her that this happened. I offered to her to talk to a nursing supervisor brew [employer], she declined. I told patient that I would discuss with nursing supervisor brew house, and did upon leaving the room. I also told patient that I discussed this same problem when it happened yesterday during other patients' deliveries, with the nursing officer. Patient would like to go home, states she will feel much better when she gets home. She denies symptoms of depression, denies desire to hurt self/others/baby. She is not depressed, her tears are out of frustration. Discharge reviewed. RTO 6w. Georgiana Canas DO [facility] Resident Activity Tracking <Harris Styles, - Last Filed: 01/06/19 06:51> Resident Involvement: Resident Care Provided Care Provided: OB Delivery
[2019-01-06 07:03] LABS: Hemoglobin 11.5 g/dL (12.0-16.0)
[2019-01-06] MEDS: IBUPROFEN 600 MG TAB PO PRN (09:26)
[2019-01-06] MEDS: PRENATAL VITAMIN 1 TAB PO SCH (09:26)
[2019-01-06] MEDS: DOCUSATE SODIUM 100 MG CAP PO SCH (09:26)
[2019-01-06 11:05] VITALS: BP 116/79; PULSE 88; TEMP 97.5; O2SAT 100
--- NOTE | 2019-01-07 01:58 | Discharge Summary ---
ADMITTING DIAGNOSES: 1. Term . 2. Postdates . DISCHARGE DIAGNOSES: 1. Same. 2. Probable placental abruption. PROCEDURE PERFORMED: Assisted vaginal delivery, vacuum extraction. ADMISSION HISTORY: The patient is a 28-year-old 2, para 1 with an EDC of December 30 at 40+ weeks gestational age who was sent from the office in active labor. The patient had been having contractions, was evaluated in the office and was noted to be 7 cm and was sent to labor and delivery for evaluation. The patient[facility] and [facility]. She has had a benign course. Blood type O positive, antibody negative, rubella immune, hepatitis B negative. She had normal 1-hour Glucola and a negative third trimester beta strep culture. PHYSICAL EXAMINATION: GENERAL: Admission physical showed a gravid female in active labor. ABDOMEN: Gravid, vertex, positive heart tones, estimated weight of 7-1/2 pounds. PELVIC: Showed her to be 8 cm dilated, 100% effaced and 0 station. HOSPITAL COURSE: The patient was deemed in active labor. Anesthesia was consulted and an epidural was placed. Following placement of the epidural, the patient had artificial rupture of membranes for clear fluid. Tracing was category 2 and reassuring. The patient progressed to full dilatation, but amniotic fluid became bloody in nature. She began her second stage and was pushing somewhat effectively, but there began to be decelerations with contractions with slow return to baseline. Fluid remained bloody consistent with a placental abruption and a decision was made to proceed with an operative vacuum vaginal delivery. After obtaining verbal consent from the patient, the bladder was drained of any residual urine. The Mityvac vacuum was applied. Over 2 contractions with 1 pop off, the baby was delivered over a midline second-degree laceration. Blood clots after delivery of the , cord was then clamped and cut. Cord gases, cord blood samples were obtained. Placenta was delivered spontaneously. There were blood clots along the membrane junction with the placenta consistent with abruption. Placenta was sent for pathological evaluation. Midline laceration was repaired with 4-0 Vicryl. Estimated blood loss was 300 mL. , the patient did well and was ambulating without difficulty. H and H came back at 11.5 and 34.0. The patient was discharged on the second day with the routine discharge instructions. She will follow up in the office in 6 weeks' time for check but as always she has been instructed to call with any problems or difficulties.
== END 2019-01-06 12:30 | disposition home or self-care (01) | DRG 805 ==
LOC: 4S1 10:20 → 4S2 15:57